=== PATIENT | male | born 1990 | race Caucasian/White ===

== ENCOUNTER 2021-06-11 19:35 | Emergency (ER) | payer BC, SELFPAY ==
[2021-06-11 19:42] VITALS: BP 126/60; PULSE 81; RESP 20; TEMP 36.8; O2SAT 100
--- NOTE | 2021-06-11 19:59 | ED.SKABFB ---
HPI - Skin/Abscess/Foreign Bdy General Chief complaint: Skin/Abscess/Foreign Body Stated complaint: Possible spider bite Time Seen by Provider: 06/11/21 19:53 Source: patient and RN notes reviewed Mode of arrival: ambulatory Limitations: no limitations History of Present Illness HPI narrative: Patient presents today with a 2-day history of a blister to his left third finger. 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 Currently rates his pain 3/10 and has tried no [id number] treatment prior to arrival. States today a red ring formed around the area around noon. MD complaint: discoloration Related Data Allergies Allergy/AdvReac Type Severity Reaction Status Date / Time No Known Allergies Allergy Verified 06/11/21 19:54 Review of Systems Review of Systems: CONSTITUTIONAL: Denies body aches, fever, chills, or sweats. EYES: Denies visual changes, redness, or discharge. ENT: Denies rhinorrhea, congestion, sore throat, or otalgia. CARDIOVASCULAR: Denies chest pain, palpitations, or edema. RESPIRATORY: Denies cough or dyspnea. GASTROINTESTINAL: Denies abdominal pain, nausea, vomiting, or diarrhea. GENITOURINARY: Denies dysuria or hematuria. SKIN: Denies rash, itching. + Blister to left third finger MUSCULOSKELETAL: Denies back pain, joint pain, or myalgia. NEUROLOGIC: Denies headache, numbness, tingling, or weakness. PSYCH: Denies depression or anxiety. PMFSH Comments At time of signature, I have reviewed and agree with nursing past medical, surgical, social and family history unless otherwise noted. Please see nursing chart for further information. There is no relevant family history pertinent to the presenting complaint Exam Narrative: GENERAL: Well-appearing, well-nourished, and in no acute distress. HEAD: Normocephalic, atraumatic. EYES: EOMI. No redness or drainage. Conjunctivae normal. ENT: Mucous membranes pink and moist. NECK: Normal AROM. CHEST: No respiratory distress. EXTREMITIES: Left third finger: 1.5 x 2 cm circular ruptured blister to the PIP on erythematous base. No induration. Tender to palpation. Mild edema. Pain with range of motion of the finger. Distal sensation intact. Capillary refill normal. SKIN: Warm, dry, no rash. Capillary refill normal. Normal skin turgor. NEURO: No focal deficits. Alert and oriented x3. Gait steady. PSYCH: Normal affect. No signs of depression or anxiety. Course Vital Signs Vital signs: Vital Signs Temperature 98.2 F 06/11/21 19:42 Pulse Rate 81 06/11/21 19:42 Respiratory Rate 20 06/11/21 19:42 Blood Pressure 126/60 06/11/21 19:42 Pulse Oximetry 100 06/11/21 19:42 Temperature 98.2 F 06/11/21 19:42 Pulse Rate 81 06/11/21 19:42 Respiratory Rate 20 06/11/21 19:42 Blood Pressure 126/60 06/11/21 19:42 Pulse Oximetry 100 06/11/21 19:42 Reviewed. Pt has been instructed to follow up with his PCP regarding his elevated blood pressure today. MDM - Skin/Abscess/Foreign Bdy Differential Diagnosis Differential diagnosis: Likely abscess of skin or subcutaneous tissue, cellulitis and impetigo Critical Care Time Critical Care Time Critical Care Time: No Discharge Plan Discharge Clinical Impression: Cellulitis of finger of left hand Patient Disposition: Home, Self-Care Condition: Stable Instructions: Antibiotic Form, Cellulitis (ED) Additional Instructions: Please take cephalexin as prescribed until gone. Take Tylenol or ibuprofen for pain. Wash with soap and water. Do not wash with alcohol or peroxide. Do not apply antibiotic ointment. Do not peel back the skin overlying the area. If symptoms worsen, please follow-up with your doctor. Your blood pressure was elevated above 120/80 today at Urgent Care. This puts you above the threshold for follow up. Please schedule a followup visit with your personal physician as soon as possible, for further evaluati
== END 2021-06-11 20:05 | disposition home or self-care (01) ==
PROVIDERS: Emergency Provider Nurse Practitioner; PCP Family Medicine
DX: L03.012 Cellulitis of left finger (principal)
CPT/HCPCS: 99213; G0463